=== PATIENT | male | born 1950 | race Caucasian/White ===

== ENCOUNTER 2019-11-03 14:15 | Emergency (ER) | payer MEDICARE, BC ==
[2019-11-03] MEDS ORDERED: Sodium Chloride 0.9% 10 ML Syringe FLUSH PRN (14:43)
[2019-11-03] MEDS: Sodium Chloride 0.9% 1,000 ML IV ONE (14:50)
[2019-11-03 15:20] LABS: ANION GAP 20.1 mmol/L (5-15); CHLORIDE,CL 103 mmol/L (98-115); SODIUM,NA 143 mmol/L (136-145)
--- NOTE | 2019-11-03 15:52 | CT ---
[id number] CT/CT Abdomen Pelvis WO IV EXAM: CT Abdomen Pelvis WO IV CLINICAL DATA: ABDOMEN PAIN. COMPARISON STUDY: None. FINDINGS: Evaluation is limited without the use of IV or oral contrast. Lung bases are clear. Small to moderate amount of free fluid within the abdomen and pelvis, nonspecific. Punctate nonobstructing bilateral renal calculus. Mild bilateral hydronephrosis and hydroureter without obstructing stones identified. The prostate is enlarged. The liver, spleen and adrenal glands are unremarkable. There is questionable inflammation surrounding the pancreas with apparent loss of lobulations. No fluid collection. The appendix is not well-visualized. There are surgical clips in the region of the cecum suggestive of prior appendectomy. No lymphadenopathy, free fluid, or pneumoperitoneum. Scattered changes of spondylosis the spine. No fracture or osseous lesion. IMPRESSION: 1. Limited evaluation without the use of IV and oral contrast. There is free fluid within the abdomen and pelvis which is nonspecific. Peripancreatic stranding with loss of fat lobulations could be seen with acute pancreatitis. Correlation with lipase levels is recommended. 2. Mild bilateral hydronephrosis without evidence of obstructing stone. The prostate is markedly enlarged and the bladder is distended. This could be the source of hydronephrosis. Delroy Veras DO 11/03/19 [id number] Thank you for allowing us to participate in the care of your patient.
--- NOTE | 2019-11-03 16:19 | EDM.PDOC ---
ED HPI GENERAL MEDICAL PROBLEM - General Chief Complaint: Genitourinary Problem Stated Complaint: Urinary retention Time Seen by Provider: 11/03/19 14:42 Source of Information: Reports: Patient History Limitations: Reports: No Limitations - History of Present Illness INITIAL COMMENTS - FREE TEXT/NARRATIVE: Patient is a 69-year-old gentleman who presents to the emergency department this afternoon with a complaint of urinary retention. Patient states that retention began on Thursday and he has only had minimal output. Patient also states that he moved his bowels in 2 days. Patient is developed mild lower abdominal pressure. Patient denies fever, chest pain, shortness of breath, nausea, vomiting, diarrhea, history of small bowel obstruction, history of prostate issues, or any trauma. Onset: Gradual Onset Date: 10/30/19 Duration: Day(s): Location: Reports: Abdomen Quality: Reports: Pressure Severity: Mild Improves with: Reports: None Worsens with: Reports: None Context: Denies: Trauma Associated Symptoms: Reports: Loss of Appetite. Denies: Chest Pain, Diaphoresis, Fever/Chills, Nausea/Vomiting, Shortness of Breath Bilateral Lower Flank Pain Score (Numeric/FACES): 8 - Related Data Allergies Allergy/AdvReac Type Severity Reaction Status Date / Time Penicillins Allergy Rash Verified 11/03/19 15:43 Home Meds: Home Meds Triamcinolone Acetonide [Triamcinolone Acetonide 0.1% Crm] 1 appful TOP ASDIRECTED PRN 11/03/19 [History] Past Medical History HEENT History: Reports: Impaired Vision ED ROS GENERAL - Review of Systems Review Of Systems: Comprehensive ROS is negative, except as noted in HPI. Constitutional: Reports: No Symptoms HEENT: Reports: No Symptoms Respiratory: Reports: No Symptoms Cardiovascular: Reports: No Symptoms Endocrine: Reports: No Symptoms GI/Abdominal: Reports: Abdominal Pain : Reports: Urinary Retention Musculoskeletal: Reports: No Symptoms Skin: Reports: No Symptoms Neurological: Reports: No Symptoms Psychiatric: Reports: No Symptoms Hematologic/Lymphatic: Reports: No Symptoms Immunologic: Reports: No Symptoms ED EXAM, RENAL/ - Physical Exam Exam: See Below Exam Limited By: No Limitations General Appearance: Alert, WD/WN, No Apparent Distress Throat/Mouth: Normal Inspection, Normal Oropharynx, No Airway Compromise Head: Atraumatic, Normocephalic Neck: Normal Inspection Respiratory/Chest: No Respiratory Distress, Lungs Clear, Normal Breath Sounds, No Accessory Muscle Use, Chest Non-Tender Cardiovascular: Regular Rate, Rhythm, No Murmur GI/Abdominal: Normal Bowel Sounds, Soft, Tender (Suprapubic) (Male) Exam: No Hernia, Normal Inspection, Suprapubic Fullness. No: Scrotal Swelling, Scrotum Tenderness (L), Scrotum Tenderness (R), Testicular Mass, Testicular Tenderness (L), Testicular Tenderness (R) Back Exam: Normal Inspection. No: CVA Tenderness (L), CVA Tenderness (R) Extremities: Normal Inspection, No Pedal Edema Neurological: Alert, Oriented, Normal Cognition Psychiatric: Normal Affect, Normal Mood Skin Exam: Warm, Dry, Intact, Normal Color, No Rash Lymphatic: No Adenopathy Course - Vital Signs Last Recorded V/S: Last Vital Signs Temp 98.3 F 11/03/19 18:48 Pulse 72 11/03/19 18:48 Resp 18 11/03/19 18:48 BP 187/90 H 11/03/19 18:48 Pulse Ox 98 11/03/19 18:48 - Orders/Labs/Meds Labs: Laboratory Tests 11/03/19 11/03/19 11/03/19 Range/Units 14:52 14:52 14:52 WBC 6.44 (5.00-10.00) 10^3/uL RBC 4.21 L (4.50-6.00) 10^6/uL Hgb 13.5 (13.0-17.0) g/dL Hct 38.0 L (40.0-52.0) % MCV 90.3 (82.0-92.0) fL MCH 32.1 H (27.0-31.0) pg MCHC 35.5 (32.0-36.0) g/dL RDW 12.9 (11.5-14.5) % Plt Count 158 (150-400) 10^3/uL MPV 10.3 (7.4-10.4) fL Immature Gran % (Auto) 0.3 (0.0-5.0) % Neut % (Auto) 73.4 H (50.0-70.0) % Lymph % (Auto) 13.7 L (20.0-40.0) % [place] % (Auto) 11.2 H (2.0-8.0) % Eos % (Auto) 1.1 (1.0-3.0) % Baso % (Auto) 0.3 (0.0-1.0) % Neut # (Auto) 4.73 (2.50-7.00) 10^3/uL Lymph # (Auto) 0.88 L (1.00-4.00) 10^3/uL [place] # (Auto) 0.72 (0.10-0.80) 10^3/uL Eos # (Auto) 0.07 L (0.10-0.30) 10^3/uL Baso # (Auto) 0.02 (0.00-0.10) 10^3/uL Immature Gran # (Auto) 0.02 (0.00-0.50) 10^3/uL Sodium 143 (136-145) mmol/L Potassium 3.5 (3.3-5.3) mmol/L Chloride 103 (98-115) mmol/L Carbon Dioxide 23.4 (21.0-32.0) mmol/L Anion Gap 20.1 H (5-15) mmol/L BUN 92 H* (6-25) mg/dL Creatinine 9.78 H* (0.51-1.17) mg/dL Est Cr Clr Drug Dosing TNP Estimated GFR (MDRD) 5 mL/min Glucose 91 (75 - 99) mg/dL Calcium 8.9 (8.7-10.3) mg/dL Total Bilirubin 1.0 (0.2-1.0) mg/dL AST 22 (15-37) U/L ALT 35 (12-78) U/L Alkaline Phosphatase 60 (46-116) IU/L Total Protein 6.6 (6.4-8.2) g/dL Albumin 3.59 (3.00-4.80) g/dL Lipase 167 (73-393) U/L Specimen Type Urine Color (YELLOW) Urine Appearance (CLEAR) Urine pH (5.0-9.0) Ur Specific [place] (1.005-1.030) Urine Protein (NEGATIVE) mg/dL Urine Glucose (UA) (NEGATIVE) mg/dL Urine Ketones (NEGATIVE) mg/dL Urine Occult Blood (NEGATIVE) Urine Nitrite (NEGATIVE) Urine Bilirubin (NEGATIVE) Urine Urobilinogen (0.2-1.0) E.U./dL Ur Leukocyte Esterase (NEGATIVE) Urine RBC (0-5) /HPF Urine WBC (0-5) /HPF Urine Bacteria (NONE TO FEW) /HPF 11/03/19 Range/Units 15:25 WBC (5.00-10.00) 10^3/uL RBC (4.50-6.00) 10^6/uL Hgb (13.0-17.0) g/dL Hct (40.0-52.0) % MCV (82.0-92.0) fL MCH (27.0-31.0) pg MCHC (32.0-36.0) g/dL RDW (11.5-14.5) % Plt Count (150-400) 10^3/uL MPV (7.4-10.4) fL Immature Gran % (Auto) (0.0-5.0) % Neut % (Auto) (50.0-70.0) % Lymph % (Auto) (20.0-40.0) % [place] % (Auto) (2.0-8.0) % Eos % (Auto) (1.0-3.0) % Baso % (Auto) (0.0-1.0) % Neut # (Auto) (2.50-7.00) 10^3/uL Lymph # (Auto) (1.00-4.00) 10^3/uL [place] # (Auto) (0.10-0.80) 10^3/uL Eos # (Auto) (0.10-0.30) 10^3/uL Baso # (Auto) (0.00-0.10) 10^3/uL Immature Gran # (Auto) (0.00-0.50) 10^3/uL Sodium (136-145) mmol/L Potassium (3.3-5.3) mmol/L Chloride (98-115) mmol/L Carbon Dioxide (21.0-32.0) mmol/L Anion Gap (5-15) mmol/L BUN (6-25) mg/dL Creatinine (0.51-1.17) mg/dL Est Cr Clr Drug Dosing Estimated GFR (MDRD) mL/min Glucose (75 - 99) mg/dL Calcium (8.7-10.3) mg/dL Total Bilirubin (0.2-1.0) mg/dL AST (15-37) U/L ALT (12-78) U/L Alkaline Phosphatase (46-116) IU/L Total Protein (6.4-8.2) g/dL Albumin (3.00-4.80) g/dL Lipase (73-393) U/L Specimen Type [place] Urine Color Yellow (YELLOW) Urine Appearance Clear (CLEAR) Urine pH 6.0 (5.0-9.0) Ur Specific [place] 1.015 (1.005-1.030) Urine Protein Negative (NEGATIVE) mg/dL Urine Glucose (UA) Negative (NEGATIVE) mg/dL Urine Ketones Negative (NEGATIVE) mg/dL Urine Occult Blood Large H (NEGATIVE) Urine Nitrite Negative (NEGATIVE) Urine Bilirubin Negative (NEGATIVE) Urine Urobilinogen 0.2 (0.2-1.0) E.U./dL Ur Leukocyte Esterase Negative (NEGATIVE) Urine RBC >100 H (0-5) /HPF Urine WBC 5-10 H (0-5) /HPF Urine Bacteria Occasional (NONE TO FEW) /HPF Meds: Medications Discontinued Medications Generic Name Dose Route Start Last Admin Trade Name Freq PRN Reason Stop Dose Admin Hydromorphone HCl 0.5 mg 11/03/19 16:18 11/03/19 16:29 Dilaudid IVPUSH 11/03/19 16:19 0.5 mg ONETIME ONE Administration Hydromorphone HCl 0.5 mg 11/03/19 17:46 11/03/19 17:35 Dilaudid IVPUSH 11/03/19 17:47 0.5 mg ONETIME ONE Administration Sodium Chloride 1,000 mls @ 999 mls/hr 11/03/19 14:43 11/03/19 14:50 Normal Saline IV 11/03/19 15:43 999 mls/hr .BOLUS ONE Administration Ondansetron HCl 4 mg 11/03/19 16:18 11/03/19 16:27 Zofran IVPUSH 11/03/19 16:19 4 mg ONETIME ONE Administration Sodium Chloride 10 ml 11/03/19 14:43 Saline Flush FLUSH Q8HR PRN keep vein open - Radiology Interpretation Free Text/Narrative:: CT abdomen and pelvis shows acute pancreatitis. Mild bilateral hydronephrosis without obstruction, enlarged prostate. - Re-Assessments/Exams Free Text/Narrative Re-Assessment/Exam: 11/03/19 16:54 Patient afebrile, vital signs stable, pain controlled. Discussed case with Dr. Watson, hospitalist at [facility]. She will accept transfer. Patient will be transferred via ground ambulance. Departure - Departure Time of Disposition: 16:56 Disposition: DC/Tfer to [facility] 02 Condition: Serious Clinical Impression: Renal failure Qualifiers: Renal failure chronicity: acute Acute renal failure type: unspecified Qualified Code(s): N17.9 - Acute kidney failure, unspecified - Discharge Information Referrals: Ella Hernandez MD [Primary Care Provider] - Forms: ED Department Discharge - Assessment/Plan Assessment:: Acute renal failure Plan: Transfer to [facility]
[2019-11-03] MEDS: Ondansetron 4 MG/2 ML SDV IVPUSH ONE (16:27)
[2019-11-03] MEDS: HYDROmorphone 1 MG/ML Syringe IVPUSH ONE ×2 (16:29→17:35)
== END 2019-11-03 17:45 ==
LOC: KA.ED 14:15
DX: N17.9 Acute kidney failure, unspecified (principal); Z88.0 Allergy status to penicillin
CPT/HCPCS: 36415; 51702; 51798; 74176; 80053; 81001; 83690; 85025; 96374; 96375; 96376; 99284; 99284-25; J1170; J2405; J7030

== ENCOUNTER 2019-11-10 21:48 | Emergency (ER) | payer MEDICARE, BC ==
--- NOTE | 2019-11-10 23:16 | EDM.PDOC ---
ED HPI GENERAL MEDICAL PROBLEM - General Chief Complaint: General Stated Complaint: hematuria Time Seen by Provider: 11/10/19 22:37 Source of Information: Reports: Patient, Significant Other History Limitations: Reports: No Limitations - History of Present Illness INITIAL COMMENTS - FREE TEXT/NARRATIVE: Patient presents with gross hematuria that started about 13 hours ago. He went to clinic and saw Dr. Mcdonald at 1030 today. He says the urine is darker red now. He has had a Castle catheter in for a week to maintain urethral outflow with his large prostate. He is scheduled to see urology in 2 weeks for catheter removal. No pain or fever. Right Hip Pain Score (Numeric/FACES): 2 - Related Data Allergies Allergy/AdvReac Type Severity Reaction Status Date / Time Penicillins Allergy Rash Verified 11/10/19 22:20 Home Meds: Home Meds Triamcinolone Acetonide [Triamcinolone Acetonide 0.1% Crm] 1 appful TOP ASDIRECTED PRN 11/03/19 [History] Finasteride 5 mg PO DAILY 11/10/19 [History] Tamsulosin [Flomax] 0.4 mg PO BEDTIME 11/10/19 [History] Past Medical History HEENT History: Reports: Impaired Vision Other HEENT History: wears glasses Gastrointestinal History: Reports: None Genitourinary History: Reports: Prostate Disorder, Renal Calculus, Retention, Urinary - Infectious Disease History Infectious Disease History: Reports: Chicken Pox, Measles - Past Surgical History GI Surgical History: Reports: Appendectomy Male Surgical History: Reports: Circumcision Social & Family History - Tobacco Use Smoking Status *Q: Never Smoker - Caffeine Use Caffeine Use: Reports: Soda Other Caffeine Use: diet coke - Alcohol Use Days Per Week of Alcohol Use: 0 - Recreational Drug Use Recreational Drug Use: No ED ROS GENERAL - Review of Systems Review Of Systems: See Below Constitutional: Denies: Fever, Chills, Malaise, Weakness, Fatigue HEENT: Denies: Ear Pain, Throat Pain, Vision Change Respiratory: Denies: Shortness of Breath, Cough Cardiovascular: Denies: Chest Pain, Lightheadedness, Syncope GI/Abdominal: Denies: Abdominal Pain, Nausea, Vomiting : Reports: Hematuria. Denies: Dysuria, Flank Pain Musculoskeletal: Denies: Neck Pain, Shoulder Pain, Arm Pain, Back Pain, Hand Pain, Leg Pain Skin: Denies: Cyanosis, Jaundice, Mottled, Pallor, Diaphoresis Neurological: Denies: Confusion, Dizziness, Headache, Seizure, Syncope, Trouble Speaking, Difficulty Walking Psychiatric: Denies: Agitation, Anxiety, Confusion Hematologic/Lymphatic: Denies: Anemia, Easy Bleeding ED EXAM, GENERAL - Physical Exam Exam: See Below Exam Limited By: No Limitations General Appearance: Alert, WD/WN, No Apparent Distress Eye Exam: Bilateral Eye: EOMI, Normal Inspection, PERRL Ears: Normal External Exam, Hearing Grossly Normal Nose: Normal Inspection, No Blood Throat/Mouth: Normal Inspection, Normal Lips, Normal Voice, No Airway Compromise Head: Atraumatic, Normocephalic Neck: Normal Inspection, Full Range of Motion Respiratory/Chest: No Respiratory Distress, Lungs Clear, Normal Breath Sounds, No Accessory Muscle Use Cardiovascular: Regular Rate, Rhythm, No Murmur GI/Abdominal: Soft, Non-Tender, No Organomegaly, No Distention (Male) Exam: Other (urine bag has red urine in bag but still looks like colored water and not primarily blood.) Back Exam: Normal Inspection, Full Range of Motion. No: CVA Tenderness (L), CVA Tenderness (R) Extremities: Normal Inspection, Normal Range of Motion Neurological: Alert, Oriented, Normal Cognition, No Motor/Sensory Deficits Psychiatric: Normal Affect, Normal Mood Skin Exam: Warm, Dry, Intact, Normal Color, No Rash Course - Vital Signs Last Recorded V/S: Last Vital Signs Temp 98.4 F 11/10/19 22:13 Pulse 64 11/10/19 22:13 Resp 18 11/10/19 22:13 BP 156/90 H 11/10/19 22:13 Pulse Ox 96 11/10/19 22:13 - Orders/Labs/Meds Orders: Active Orders 24 hr Category Date Time Status CULTURE URINE [RM] Stat Lab 11/10/19 22:49 Ordered Labs: Laboratory Tests 11/10/19 11/10/19 11/10/19 Range/Units 22:20 22:20 22:26 WBC 6.58 (5.00-10.00) 10^3/uL RBC 4.04 L (4.50-6.00) 10^6/uL Hgb 12.8 L (13.0-17.0) g/dL Hct 38.2 L (40.0-52.0) % MCV 94.6 H D (82.0-92.0) fL MCH 31.7 H (27.0-31.0) pg MCHC 33.5 (32.0-36.0) g/dL RDW 13.1 (11.5-14.5) % Plt Count 262 D (150-400) 10^3/uL MPV 9.0 (7.4-10.4) fL Immature Gran % (Auto) 0.2 (0.0-5.0) % Neut % (Auto) 67.3 (50.0-70.0) % Lymph % (Auto) 17.6 L (20.0-40.0) % [place] % (Auto) 9.7 H (2.0-8.0) % Eos % (Auto) 4.4 H (1.0-3.0) % Baso % (Auto) 0.8 (0.0-1.0) % Neut # (Auto) 4.43 (2.50-7.00) 10^3/uL Lymph # (Auto) 1.16 (1.00-4.00) 10^3/uL [place] # (Auto) 0.64 (0.10-0.80) 10^3/uL Eos # (Auto) 0.29 (0.10-0.30) 10^3/uL Baso # (Auto) 0.05 (0.00-0.10) 10^3/uL Immature Gran # (Auto) 0.01 (0.00-0.50) 10^3/uL Sodium 144 (136-145) mmol/L Potassium 3.9 (3.3-5.3) mmol/L Chloride 104 (98-115) mmol/L Carbon Dioxide 32.9 H (21.0-32.0) mmol/L Anion Gap 11.0 (5-15) mmol/L BUN 27 H D (6-25) mg/dL Creatinine 1.24 H D (0.51-1.17) mg/dL Est Cr Clr Drug Dosing 58.23 mL/min Estimated GFR (MDRD) 58 mL/min Glucose 79 (75 - 99) mg/dL Calcium 9.2 (8.7-10.3) mg/dL Specimen Type Urinfol Urine Color Brown H (YELLOW) Urine Appearance Turbid H (CLEAR) Urine pH 6.0 (5.0-9.0) Ur Specific [place] 1.025 (1.005-1.030) Urine Protein >=300 H (NEGATIVE) mg/dL Urine Glucose (UA) Negative (NEGATIVE) mg/dL Urine Ketones Trace H (NEGATIVE) mg/dL Urine Occult Blood Large H (NEGATIVE) Urine Nitrite Negative (NEGATIVE) Urine Bilirubin Small H (NEGATIVE) Urine Urobilinogen 1.0 (0.2-1.0) E.U./dL Ur Leukocyte Esterase Negative (NEGATIVE) Urine RBC Packed (0-5) /HPF Urine WBC 5-10 H (0-5) /HPF Urine Bacteria Moderate H (NONE TO FEW) /HPF Meds: Medications Discontinued Medications Generic Name Dose Route Start Last Admin Trade Name Freq PRN Reason Stop Dose Admin Ciprofloxacin 500 mg 11/10/19 23:14 11/10/19 23:17 Ciprofloxacin Hcl PO 11/10/19 23:15 500 mg ONETIME ONE Administration - Re-Assessments/Exams Free Text/Narrative Re-Assessment/Exam: 11/10/19 23:19 Hg is 12.8, down slightly from 13.5 a week ago. I discussed case with Dr. Yash mills, urologist at [facility] who advised starting an antibiotic but otherwise waiting for urology appointment as scheduled. He will see if there are openings sooner and let patient know. I discussed findings and recommendations with patient and his . They will monitor for signs of worsening or anemia and recheck as needed. Patient given dose of Cipro tonight with Rx for 5 days. He had anaphylactic reaction to penicillin so will avoid beta-lactams. Pt discharged to home in stable condition. Departure - Departure Time of Disposition: 23:16 Disposition: Home, Self-Care 01 Condition: Good Clinical Impression: Gross hematuria, Indwelling Castle catheter present - Discharge Information Instructions: Hematuria, Adult Referrals: Ella Hernandez MD [Primary Care Provider] - Forms: ED Department Discharge Additional Instructions: Drink at least 8 cups of water daily. Take the Cipro as directed. See the urologist as scheduled and may be sooner if they have openings. If worsening, as we discussed, follow up with your PCP or ER for recheck. Sepsis Event Note (ED) - Evaluation Sepsis Screening Result: No Definite Risk - Focused Exam Vital Signs: Vital Signs Temp Pulse Resp BP Pulse Ox 11/10/19 22:13 98.4 F 64 18 156/90 H 96 - My Orders Last 24 Hours: My Active Orders 11/10/19 22:49 CULTURE URINE [] Stat - Assessment/Plan Last 24 Hours: My Active Orders 11/10/19 22:49 CULTURE URINE [] Stat
[2019-11-10] MEDS: Ciprofloxacin 500 MG Tab PO ONE (23:17)
== END 2019-11-10 23:32 | disposition home or self-care (01) ==
LOC: KA.ED 21:48
DX: R31.0 Gross hematuria (principal); Z46.6 Encounter for fitting and adjustment of urinary device; Z88.0 Allergy status to penicillin; Z79.899 Other long term (current) drug therapy
CPT/HCPCS: 36415; 80048; 81001; 85025; 87086; 99283; 99284; A9270-GY